=== PATIENT | female | born 1955 | race Caucasian/White ===

== ENCOUNTER 2021-10-06 09:43 | Day surgery (SDC) | payer OTHER ==
[2021-10-02 11:13] VITALS: BMI 30.2
[2021-10-06 10:34] VITALS: RESP 16
[2021-10-06] MEDS ORDERED: PROPOFOL 60 ML ONE (10:56)
[2021-10-06 12:54] VITALS: BP 122/74; PULSE 62; TEMP 98.2
== END 2021-10-06 12:45 | disposition home or self-care (01) ==
LOC: FASU-ENDO 09:43
PROVIDERS: ATTEND Internal Medicine Gastroenterology
PROC: 0DJD8ZZ Inspection of Lower Intestinal Tract, Via Natural or Artificial Opening Endoscopic (ICD-10-PCS; principal; 2021-10-06 11:04)
DX: Z12.11 Encounter for screening for malignant neoplasm of colon (principal); K57.30 Diverticulosis of large intestine without perforation or abscess without bleeding; Z86.010 Personal history of colon polyps; Z83.71 Family history of colonic polyps